=== PATIENT | female | born 1950 | race African-American/Black ===

== ENCOUNTER 2016-10-21 09:33 | Emergency (ER) | payer SELFPAY ==
--- NOTE | 2016-10-21 11:05 | ER Document Report ---
ED Eye Complaint - General Chief Complaint: Eye Pain Stated Complaint: EYE PAIN Information source: Patient, Relative TRAVEL OUTSIDE OF THE [place] IN LAST 30 DAYS: No - HPI Eye location: Bilateral Injury: No Associated symptoms: Burning, Itching, Redness, Blurred vision. denies: Photophobia, Matting, Eyelid swelling, Orbital swelling, Foreign body sensation , Double vision, Decreased vision, Loss of vision Notes: Patient arrives with her son at the bedside with complaints of bilateral eye irritation. Patient is visiting from [facility]. For the last several weeks she has been complaining of eye irritation to him. He tried an over-the- counter eyedrop was seen at a medical clinic last week and given antihistamine eyedrops. Seemed to improve her symptoms somewhat now she's having eye irritation again. She does complain of some mild blurred vision in both eyes. She denies any injury. She denies any fever. She denies any unilateral numbness tingling or weakness. No nausea vomiting diarrhea. She denies any other complaints at this time. - Related Data Allergies/Adverse Reactions: No Known Allergies Allergy (Verified 10/21/16 09:36) Past Medical History - Social History Smoking Status: Never Smoker Chew tobacco use (# tins/day): No Frequency of alcohol use: None Drug Abuse: None Family History: Reviewed & Not Pertinent Patient has suicidal ideation: No Patient has homicidal ideation: No - Past Medical History Cardiac Medical History: Reports: Hx Hypertension Renal/ Medical History: Denies: Hx Peritoneal Dialysis Review of Systems - Review of Systems -: Yes All other systems reviewed and negative Physical Exam - Vital signs Vitals: Temp Pulse Resp BP Pulse Ox 98.4 F 84 16 140/78 H 97 10/21/16 09:38 10/21/16 09:38 10/21/16 09:38 10/21/16 09:38 10/21/16 09:38 - General General appearance: Appears well, Alert - HEENT Head: Normocephalic Eyes: Normal Conjunctiva: Injected - Mild. No: Purulent discharge Cornea: Normal, Opacified - Mild. No: Corneal abrasion, Corneal ulcer, Dendrite , Embedded foreign body, Flourescein stain uptake Extraocular movements intact: Yes Eyelashes: Normal Pupils: PERRL Visual acuity- Right eye: 20/100 Visual acuity- Left eye: 20/70 Visual acuity- Both eyes: 20/70 Corrective lenses worn: No Anterior chamber: Normal Ears: Normal Mucous membranes: Normal Pharynx: Normal - Respiratory Respiratory status: No respiratory distress Breath sounds: Normal - Cardiovascular Rhythm: Regular Heart sounds: Normal auscultation Murmur: No - Back Back: Normal, Nontender - Extremities General upper extremity: Normal inspection, Nontender, Normal color, Normal ROM , Normal temperature General lower extremity: Normal inspection, Nontender, Normal color, Normal ROM , Normal temperature, Normal weight bearing. No: Loy's sign - Neurological Neuro grossly intact: Yes Cognition: Normal Orientation: AAOx4 Leobardo Coma Scale Eye Opening: Spontaneous Weston Coma Scale Verbal: Oriented Weston Coma Scale Motor: Obeys Commands Weston Coma Scale Total: 15 Speech: Normal Motor strength normal: LUE, RUE, LLE, RLE Sensory: Normal - Psychological Associated symptoms: Normal affect, Normal mood - Skin Skin Temperature: Warm Skin Moisture: Dry Skin Color: Normal Course - Re-evaluation Re-evalutation: 10/21/16 11:03 The patient sometimes very stable vitals. The patient has had eye irritation and mild redness for several weeks now. It was no injury. I exam today shows mild injection with no signs of infection. There is no foreign bodies identified. Corneal exam shows no abrasion, ulceration, dendritic lesions. She does appear to have some mild cataracts bilaterally. Patient's in no distress at this time and will be discharged home with instructions to follow- up with ophthalmology at the next label point. She will be referred appropriately. Follow-up for worsening symptoms, loss of vision, fevers, drainage, any further concerns. The patient is noted to have elevated blood pressure during today's emergency department visit. The patient was informed of this finding. The patient was instructed that this may be related to pre-hypertension and requires further evaluation with a primary care provider. The patient has no hypertensive symptoms at this time. The patient's emergency department workup and current diagnosis were explained to the patient and or family. Follow-up instructions were provided. Medications if prescribed were discussed. Instructions for when to return to the emergency department including specific worrisome symptoms were discussed with the patient and/or family. - Vital Signs Vital signs: Temp Pulse Resp BP Pulse Ox 98.4 F 84 16 140/78 H 97 10/21/16 10:09 10/21/16 10:09 10/21/16 10:09 10/21/16 10:09 10/21/16 10:09 Discharge - Discharge Clinical Impression: Eye irritation Condition: Stable Disposition: HOME, SELF-CARE Additional Instructions: Follow-up with ophthalmology at the next available appointment. Follow-up sooner for increased pain, loss of vision, discharge, high fever, redness or swelling around the outside of the eye, or any further concerns. Your blood pressure was elevated during today's visit. Have this rechecked with your doctor. Forms: Elevated Blood Pressure Referrals: RODOLFO MACHUCA MD [ACTIVE STAFF] - Follow up as needed
[2016-10-21 11:23] VITALS: BP 136/76
== END 2016-10-21 11:23 | disposition home or self-care (01) ==
LOC: ER 09:33
DX: H57.13 Ocular pain, bilateral (principal)
CPT/HCPCS: 99283